=== PATIENT | male | born 1980 | race Two or more races ===

== ENCOUNTER 2022-07-10 20:16 | Emergency (ER) | payer BC ==
[2022-07-10 20:27] VITALS: BP 134/94; PULSE 73
[2022-07-10] MEDS ORDERED: Ciprofloxacin 0.3% Ophth Soln 5 ML Bottle EYERT ONE (21:05)
== END 2022-07-10 21:17 | disposition home or self-care (01) ==
LOC: JD.ED 20:16
DX: S05.01XA Injury of conjunctiva and corneal abrasion without foreign body, right eye, initial encounter (principal); H11.31 Conjunctival hemorrhage, right eye; W50.0XXA Accidental hit or strike by another person, initial encounter
CPT/HCPCS: 99283; A9270

== ENCOUNTER 2023-03-07 00:49 | Emergency (ER) | payer BC ==
[2023-03-07 01:04] VITALS: BP 143/81; PULSE 100
== END 2023-03-07 02:00 | disposition home or self-care (01) ==
LOC: JD.ED 00:49
DX: E11.65 Type 2 diabetes mellitus with hyperglycemia (principal); Z79.899 Other long term (current) drug therapy
CPT/HCPCS: 82947; 99283; 99284